=== PATIENT | female | born 1940 | race African-American/Black ===

== ENCOUNTER 2017-01-17 17:18 | Inpatient (IN) | payer MEDICARE, MEDICAID ==
[~2017-01-17] VITALS: Ht 165.1 cm; Wt 68.0 kg
[~2017-01-17 17:18] MED LIST: ASPI-867 PO; ATOR40TA70 PO; COUMADIN PO; HYDR12.529 PO; LIPITOR; NEUROTIN PO
[2017-01-17] MEDS ORDERED: FERR12.5 PO (17:25)
[2017-01-17] MEDS ORDERED: MIRT15TA6 PO (17:25)
[2017-01-17] MEDS ORDERED: LEVOFLOXACIN 500MG PREMIX 100 ML IV ONE (17:45)
[2017-01-17] MEDS ORDERED: SODIUM CHLORIDE 0.9% 1000ML BAG (SEPSIS BOLUS) IV ONE (17:45)
[2017-01-17] MEDS ORDERED: NOREPINEPHRINE 4 MG in DEXT 5% WATER 246 ML IV ONE ×4 (19:15)
[2017-01-17 20:20] LABS: BASOPHILS % 0.6 % (0.0-2.0); EOSINOPHILS % 0.9 % (0.0-5.0); HEMATOCRIT. 29.7 % (36.0-48.0); LYMPHOCYTES % 14.3 % (20.0-50.0); MEAN CORPUSCULAR HEMOGLOBIN 29.3 pg (28.0-32.0); MEAN CORPUSCULAR VOLUME 86.5 fL (81.0-99.0); MEAN PLATELET VOLUME 8.7 fl (7.4-10.4); MONOCYTES % 7.1 % (2.0-8.0); NEUTROPHILS % 77.1 % (40.0-76.0); PLATELET 243 x1000/uL (130-400); RED BLOOD CELL COUNT 3.43 mill/uL (4.2-5.4); RED CELL DISTRIBUTION WIDTH 17.2 % (11.6-14.6)
[2017-01-17 20:24] LABS: CHLORIDE 106 mEq/L (98-107)
[2017-01-17 20:27] LABS: INR 1.3; PARTIAL THROMBOPLASTIN TIME 29.4 sec (23.4-31.0); PROTHROMBIN TIME 13.2 sec (9.4-11.6)
[2017-01-17 20:29] LABS: CARBON DIOXIDE 20 mEq/L (21-32)
[2017-01-17 20:33] LABS: CLARITY URINE TURBID (CLEAR); COLOR URINE YELLOW (YELLOW); GLUCOSE URINE NEGATIVE (NEGATIVE); KETONES URINE NEGATIVE (NEGATIVE); LEUKOCYTE ESTERASE URINE 3+ (NEGATIVE); NITRITE URINE NEGATIVE (NEGATIVE); OCCULT BLOOD URINE TRACE (NEGATIVE); PH URINE 8.5 (4.5-8.0); PROTEIN URINE 2+ (NEGATIVE); SPECIFIC GRAVITY URINE 1.017 (1.005-1.030)
[2017-01-17 20:35] LABS: TROPONIN I 0.09 ng/mL (0.00-0.04)
[2017-01-17] MEDS ORDERED: ONDANSETRON HCL 4MG/2ML VIAL IV PRN (23:15)
[2017-01-17] MEDS ORDERED: ACETAMINOPHEN 650MG/20.3ML UDC GT PRN (23:15)
[2017-01-17] MEDS ORDERED: CLONIDINE 0.1MG TABLET PO PRN (23:15)
[2017-01-17] MEDS ORDERED: VANCOMYCIN 1 G PREMIX 200 ML IV NR (23:15)
[2017-01-17 23:39] LABS: TOTAL IRON BINDING CAPACITY 129 ug/dL (250-450)
[2017-01-17 23:58] VITALS: BP 54/35
[2017-01-18] VITALS (111 sets, daily range): BP systolic 60–147; BP diastolic 28–119
[2017-01-18] MEDS: IPRATROPIUM/ALBUTEROL 0.5-3(2.5)MG/3ML NEB HHN SCH ×6 (01:01→20:09)
[2017-01-18] MEDS ORDERED: SODIUM CHL 0.45% + KCL 20MEQ/L 1,000 ML IV SCH (01:30)
[2017-01-18] MEDS: CLINDAMYCIN 600 MG in DEXTROSE 5% WATER 50 ML IV SCH ×2 (02:45→08:16)
[2017-01-18] MEDS: NOREPINEPHRINE 4 MG in DEXT 5% WATER 246 ML IV PRN ×2 (03:00→13:42)
[2017-01-18] MEDS ORDERED: MVI, ADULT NO.1 10 ML, FOLIC ACID 1 MG, THIAMINE HCL 100 MG in SODIUM CHLORIDE 0.9% 1,0... IV NR ×4 (03:00)
[2017-01-18] MEDS: HYDROMORPHONE HCL/PF 2MG/ML CPJ IV PRN ×2 (04:19→17:05)
[2017-01-18 05:40] LABS: BASOPHILS % 0.2 % (0.0-2.0); EOSINOPHILS % 0.3 % (0.0-5.0); HEMATOCRIT. 28.4 % (36.0-48.0); HEMOGLOBIN. 9.5 g/dL (12.0-16.0); LYMPHOCYTES % 10.5 % (20.0-50.0); MEAN CORPUSCULAR HEMOGLOBIN 29.3 pg (28.0-32.0); MEAN CORPUSCULAR VOLUME 87.6 fL (81.0-99.0); MONOCYTES % 6.6 % (2.0-8.0); NEUTROPHILS % 82.4 % (40.0-76.0); PLATELET 196 x1000/uL (130-400); RED BLOOD CELL COUNT 3.24 mill/uL (4.2-5.4); RED CELL DISTRIBUTION WIDTH 16.9 % (11.6-14.6)
[2017-01-18] MEDS ORDERED: ENOXAPARIN 40MG/0.4ML SYR SUBCUT SCH (09:00)
[2017-01-18] MEDS: VANCOMYCIN 1 G PREMIX 200 ML IV SCH (09:09)
[2017-01-18] MEDS: ASPIRIN 325MG EC TABLET PO SCH (11:55)
[2017-01-18] MEDS ORDERED: LIDOCAINE HCL 1% 20ML VIAL (Pyxis) INJ ONE (12:41)
[2017-01-18] MEDS ORDERED: NOREPINEPHRINE 8 MG in DEXT 5% WATER 242 ML IV PRN (14:00)
[2017-01-18] MEDS ORDERED: DEXT 5%/0.9% NACL 250 ML IV SCH (14:59)
[2017-01-18] MEDS: MEROPENEM 1,000 MG in SODIUM CHLORIDE 0.9% 100 ML IV SCH ×2 (15:02→21:53)
[2017-01-18] MEDS: FERROUS SULFATE 325MG TABLET PO SCH ×2 (15:02→18:20)
[2017-01-18] MEDS ORDERED: DEXT 5%/0.9% NACL 1,000 ML IV SCH ×2 (16:00→18:15)
[2017-01-18] MEDS ORDERED: CLINDAMYCIN 600 MG in DEXTROSE 5% WATER 50 ML IV SCH (16:00)
[2017-01-18] MEDS ORDERED: PHENYLEPHRINE HCL 10 MG/ML 1ML (IV VIAL) IV ONE (16:02)
[2017-01-18] MEDS: PHENYLEPHRINE 20 MG in DEXT 5% WATER 248 ML IV PRN ×2 (16:33→17:44)
[2017-01-18] MEDS ORDERED: PHENYLEPHRINE 80 MG in DEXT 5% WATER 492 ML IV PRN (18:00)
[2017-01-18] MEDS ORDERED: PHENYLEPHRINE 80 MG in DEXT 5% WATER 492 ML IV ONE (18:15)
[2017-01-18] MEDS ORDERED: ALBUMIN HUMAN 12.5G/250ML (5%) IV SCH (18:15)
[2017-01-18] MEDS ORDERED: NOREPINEPHRINE 16 MG in DEXT 5% WATER 234 ML IV PRN (18:30)
[2017-01-18] MEDS ORDERED: PHENYLEPHRINE 40 MG in DEXT 5% WATER 246 ML IV PRN (19:00)
[2017-01-18 19:36] LABS: BG BASE EXCESS -11.1 mmol/L (-2.0-2.0); BG CARBOXYHEMOGLOBIN 1.1 % (0.5-1.5); BG DEOXYHEMOGLOBIN 1.5 % (0.0-5.0); BG FRACTION INSPIRED OXYGEN 36; BG HCO3 ACT 13.3 mmol/L (22.0-26.0); BG METHEMOGLOBIN 0.1 % (0.0-1.5); BG OXYGEN SATURATION 98.5 % (92.0-98.5); BG OXYHEMOGLOBIN 97.3 % (94.0-97.0); BG PCO2 25.2 mmHg (35.0-45.0); BG PH 7.341 (7.350-7.450); BG PO2 117.6 mmHg (75.0-100.0); BG SAMPLE SITE RIGHT RADIAL; BG TOTAL HEMOGLOBIN 8.5 g/dL (12.0-18.0); BG VENT MODE NASAL CANNULA
[2017-01-18] MEDS ORDERED: DIGOXIN 500MCG/2ML AMP IV NR (20:30)
[2017-01-18] MEDS ORDERED: ALBUMIN HUMAN 12.5G/250ML (5%) IV NR (20:30)
[2017-01-18] MEDS ORDERED: SODIUM BICARBONATE 8.4% 1 MEQ/ML 50ML SYR IV NR (20:30)
[2017-01-18 20:33] LABS: CHLORIDE 105 mEq/L (98-107)
[2017-01-18 20:39] LABS: CARBON DIOXIDE 16 mEq/L (21-32)
[2017-01-18] MEDS ORDERED: ATORVASTATIN CALCIUM 40MG TABLET PO SCH (21:00)
[2017-01-18] MEDS ORDERED: SODIUM BICARBONATE 50 MEQ in SODIUM CHLORIDE 0.9% 1,000 ML IV SCH (21:30)
[2017-01-18] MEDS ORDERED: NOREPINEPHRINE 32 MG in DEXT 5% WATER 468 ML IV PRN (21:45)
[2017-01-18] MEDS ORDERED: PHENYLEPHRINE 40 MG in DEXT 5% WATER 500 ML IV PRN (21:45)
[2017-01-18] MEDS ORDERED: SODIUM BICARBONATE IV SCH (22:00)
[2017-01-18] MEDS ORDERED: DEXT IV SCH (22:00)
[2017-01-18] MEDS ORDERED: NACL IV SCH (22:00)
[2017-01-19] VITALS (55 sets, daily range): BP systolic 25–158; BP diastolic 17–108
[2017-01-19] MEDS: IPRATROPIUM/ALBUTEROL 0.5-3(2.5)MG/3ML NEB HHN SCH ×3 (00:03→12:08)
[2017-01-19] MEDS: VASOPRESSIN 10 UNIT in SODIUM CHLORIDE 0.9% 99.5 ML IV PRN ×4 (00:06→13:54)
[2017-01-19] MEDS: HYDROMORPHONE HCL/PF 2MG/ML CPJ IV PRN (02:30)
[2017-01-19] MEDS: VANCOMYCIN 1 G PREMIX 200 ML IV SCH (03:56)
[2017-01-19] MEDS: PHENYLEPHRINE 40 MG in DEXT 5% WATER 246 ML IV PRN ×2 (03:57→07:40)
[2017-01-19 04:12] LABS: BG BASE EXCESS -28.2 mmol/L (-2.0-2.0); BG CARBOXYHEMOGLOBIN 1.4 % (0.5-1.5); BG DEOXYHEMOGLOBIN 0.3 % (0.0-5.0); BG FRACTION INSPIRED OXYGEN 100; BG HCO3 ACT 2.9 mmol/L (22.0-26.0); BG METHEMOGLOBIN 0.3 % (0.0-1.5); BG OXYGEN SATURATION 99.7 % (92.0-98.5); BG PCO2 16.3 mmHg (35.0-45.0); BG PH 6.868 (7.350-7.450); BG PO2 433.1 mmHg (75.0-100.0); BG SAMPLE SITE RIGHT RADIAL; BG TIDAL VOLUME(mL) 500 mL; BG TOTAL HEMOGLOBIN 6.9 g/dL (12.0-18.0); BG VENT MODE VENT - A/C; BG VENT RATE 12 set
[2017-01-19] MEDS ORDERED: SODIUM BICARBONATE 8.4% 1 MEQ/ML 50ML SYR IV SCH ×3 (04:30→08:15)
[2017-01-19] MEDS ORDERED: SODIUM BICARBONATE 100 MEQ in SODIUM CHLORIDE 0.9% 1,000 ML IV SCH (05:30)
[2017-01-19] MEDS: MEROPENEM 1,000 MG in SODIUM CHLORIDE 0.9% 100 ML IV SCH (05:32)
[2017-01-19 07:21] LABS: CHLORIDE 104 mEq/L (98-107)
[2017-01-19 07:49] LABS: CARBON DIOXIDE 8 mEq/L (21-32)
[2017-01-19 08:12] LABS: BG BASE EXCESS -18.5 mmol/L (-2.0-2.0); BG CARBOXYHEMOGLOBIN 1.2 % (0.5-1.5); BG DEOXYHEMOGLOBIN 24.6 % (0.0-5.0); BG FRACTION INSPIRED OXYGEN 60; BG HCO3 ACT 9.7 mmol/L (22.0-26.0); BG METHEMOGLOBIN 0.3 % (0.0-1.5); BG OXYHEMOGLOBIN 73.9 % (94.0-97.0); BG PCO2 32.1 mmHg (35.0-45.0); BG PH 7.096 (7.350-7.450); BG PO2 54.2 mmHg (75.0-100.0); BG SAMPLE SITE LEFT BRACHIAL; BG TIDAL VOLUME(mL) 500 mL; BG VENT MODE VENT - A/C; BG VENT RATE 28 set
[2017-01-19] MEDS ORDERED: CALCIUM CHLORIDE 1GM/10ML SYR IV SCH (08:15)
[2017-01-19] MEDS ORDERED: PHENYLEPHRINE 80 MG in DEXT 5% WATER 492 ML IV PRN (08:15)
[2017-01-19] MEDS ORDERED: SODIUM BICARBONATE 8.4% 1 MEQ/ML 50ML SYR IV ONE ×2 (08:15→15:21)
[2017-01-19] MEDS ORDERED: INSULIN REGULAR (HUMULIN R) 300UNITS/3ML IV SCH (08:15)
[2017-01-19] MEDS ORDERED: DEXTROSE 50% WATER 50ML SYRINGE IV SCH (08:15)
[2017-01-19] MEDS: FERROUS SULFATE 325MG TABLET PO SCH ×2 (08:20→13:20)
[2017-01-19] MEDS ORDERED: CALCIUM CHLORIDE 1GM/10ML SYR IV ONE (08:22)
[2017-01-19] MEDS ORDERED: SODIUM POLYSTYRENE SULFONATE 15 G/60 ML BOT PO SCH (08:30)
[2017-01-19 08:52] LABS: HEMATOCRIT. 24.8 % (36.0-48.0); MEAN CORPUSCULAR HEMOGLOBIN 29.2 pg (28.0-32.0); MEAN CORPUSCULAR VOLUME 105.9 fL (81.0-99.0); MEAN PLATELET VOLUME 9.8 fl (7.4-10.4); PLATELET 88 x1000/uL (130-400); RED BLOOD CELL COUNT 2.34 mill/uL (4.2-5.4); RED CELL DISTRIBUTION WIDTH 18.6 % (11.6-14.6)
[2017-01-19 08:54] LABS: HEMOGLOBIN. 6.8 g/dL (12.0-16.0)
[2017-01-19] MEDS: ASPIRIN 325MG EC TABLET PO SCH (09:00)
[2017-01-19] MEDS ORDERED: ETOMIDATE 2MG/ML 10ML VIAL IV ONE (09:03)
[2017-01-19] MEDS ORDERED: EPINEPHRINE 0.1MG/ML (1:10,000) 10ML SYR ONE (09:03)
[2017-01-19] MEDS ORDERED: SODIUM BICARBONATE 7.5% 0.9 MEQ/ML 50ML SYR IV ONE (09:03)
[2017-01-19] MEDS ORDERED: DEXTROSE 50% WATER 50ML SYRINGE IV ONE (09:03)
[2017-01-19] MEDS ORDERED: SUCCINYLCHOLINE CHLORIDE 200MG/10ML VIAL IV ONE (09:03)
[2017-01-19] MEDS ORDERED: SODIUM BICARBONATE 150 MEQ in SODIUM CHLORIDE 0.9% 1,000 ML IV SCH (09:21)
[2017-01-19 10:09] LABS: BG BASE EXCESS -17.1 mmol/L (-2.0-2.0); BG CARBOXYHEMOGLOBIN 0.3 % (0.5-1.5); BG DEOXYHEMOGLOBIN 1.4 % (0.0-5.0); BG FRACTION INSPIRED OXYGEN 100; BG HCO3 ACT 8.4 mmol/L (22.0-26.0); BG METHEMOGLOBIN 0.3 % (0.0-1.5); BG OXYGEN SATURATION 98.6 % (92.0-98.5); BG PCO2 19.8 mmHg (35.0-45.0); BG PH 7.244 (7.350-7.450); BG PO2 152.6 mmHg (75.0-100.0); BG SAMPLE SITE LEFT FEMORAL; BG TIDAL VOLUME(mL) 500 mL; BG TOTAL HEMOGLOBIN 9.6 g/dL (12.0-18.0); BG VENT MODE VENT - A/C; BG VENT RATE 28 set
[2017-01-19] MEDS ORDERED: SODIUM BICARBONATE 8.4% 1 MEQ/ML 50ML SYR IV NR (10:15)
[2017-01-19 10:39] LABS: NUCLEATED RED BLOOD CELLS 3 /100 WBC; PLATELET ESTIMATE DECREASED
[2017-01-19] MEDS ORDERED: SODIUM ACETATE 150 MEQ in DEXTROSE 5% WATER 1,000 ML IV SCH (11:00)
[2017-01-19] MEDS ORDERED: CALCIUM CHLORIDE 1GM/10ML SYR IV NR (11:15)
[2017-01-19] MEDS ORDERED: PANTOPRAZOLE SODIUM 40 MG/VIAL IV SCH (11:45)
[2017-01-19 12:21] LABS: CARBON DIOXIDE 13 mEq/L (21-32); CHLORIDE 106 mEq/L (98-107)
[2017-01-19 12:32] LABS: HEMATOCRIT 33.2 % (36.0-48.0); HEMOGLOBIN 10.5 g/dL (12.0-16.0); MEAN CORPUSCULAR HEMOGLOBIN 28.5 pg (28.0-32.0); MEAN CORPUSCULAR VOLUME 90.5 fL (81.0-99.0); PLATELET 52 x1000/uL (130-400); RED BLOOD CELL COUNT 3.67 mill/uL (4.2-5.4); RED CELL DISTRIBUTION WIDTH 16.7 % (11.6-14.6)
[2017-01-19 13:57] LABS: BG BASE EXCESS -14.7 mmol/L (-2.0-2.0); BG CARBOXYHEMOGLOBIN 0.9 % (0.5-1.5); BG DEOXYHEMOGLOBIN 84.7 % (0.0-5.0); BG HCO3 ACT 12.8 mmol/L (22.0-26.0); BG METHEMOGLOBIN 1.3 % (0.0-1.5); BG OXYHEMOGLOBIN 13.1 % (94.0-97.0); BG PCO2 35.8 mmHg (35.0-45.0); BG PO2 < 30.3 mmHg (75.0-100.0); BG SAMPLE SITE RIGHT BRACHIAL; BG TIDAL VOLUME(mL) 500 mL; BG TOTAL HEMOGLOBIN 10.6 g/dL (12.0-18.0); BG VENT MODE VENT - A/C; BG VENT RATE 28 set
[2017-01-19] MEDS ORDERED: EPINEPHRINE 1 MG in SODIUM CHLORIDE 0.9% 249 ML IV PRN (14:15)
[2017-01-19] MEDS ORDERED: MAGNESIUM 2 G PREMIX 50 ML IV SCH (15:00)
== END 2017-01-19 15:38 | disposition expired | DRG 853 ==
LOC: ER 17:38 → EDBEDREQ 17:47 → CVICU 20:10 → EDBEDREQ 20:15 → EDBEDREQSVC 20:16 → CANRESERV 23:20 → ENRESERV 23:20
PROVIDERS: ADMIT Internal Medicine Geriatric Medicine; ATTEND Internal Medicine Geriatric Medicine
PROC: 06JYXZZ Inspection of Lower Vein, External Approach (ICD-10-PCS; 2017-01-17)
PROC: 0JB70ZZ Excision of Back Subcutaneous Tissue and Fascia, Open Approach (ICD-10-PCS; 2017-01-18)
PROC: 02HV33Z Insertion of Infusion Device into Superior Vena Cava, Percutaneous Approach (ICD-10-PCS; 2017-01-18)
PROC: B548ZZA Ultrasonography of Superior Vena Cava, Guidance (ICD-10-PCS; 2017-01-18)
PROC: 5A1935Z Respiratory Ventilation, Less than 24 Consecutive Hours (ICD-10-PCS; principal; 2017-01-19)
PROC: 0BH17EZ Insertion of Endotracheal Airway into Trachea, Via Natural or Artificial Opening (ICD-10-PCS; 2017-01-19)
PROC: 30233N1 Transfusion of Nonautologous Red Blood Cells into Peripheral Vein, Percutaneous Approach (ICD-10-PCS; 2017-01-19)
PROC: 06HM33Z Insertion of Infusion Device into Right Femoral Vein, Percutaneous Approach (ICD-10-PCS; 2017-01-19)
PROC: 5A12012 Performance of Cardiac Output, Single, Manual (ICD-10-PCS; 2017-01-19)
DX: A41.9 Sepsis, unspecified organism (principal); E43 Unspecified severe protein-calorie malnutrition; J96.00 Acute respiratory failure, unspecified whether with hypoxia or hypercapnia; N17.0 Acute kidney failure with tubular necrosis; R65.21 Severe sepsis with septic shock; L89.154 Pressure ulcer of sacral region, stage 4; G92 Toxic encephalopathy; D69.6 Thrombocytopenia, unspecified; I69.354 Hemiplegia and hemiparesis following cerebral infarction affecting left non-dominant side; M86.8X8 Other osteomyelitis, other site; I82.402 Acute embolism and thrombosis of unspecified deep veins of left lower extremity; I11.9 Hypertensive heart disease without heart failure; E87.5 Hyperkalemia; G30.9 Alzheimer's disease, unspecified; F02.80 Dementia in other diseases classified elsewhere, unspecified severity, without behavioral disturbance, psychotic disturbance, mood disturbance, and anxiety; L89.620 Pressure ulcer of left heel, unstageable; I48.0 Paroxysmal atrial fibrillation; Z78.1 Physical restraint status; E86.0 Dehydration; B95.5 Unspecified streptococcus as the cause of diseases classified elsewhere; D50.9 Iron deficiency anemia, unspecified; E78.00 Pure hypercholesterolemia, unspecified; E78.5 Hyperlipidemia, unspecified; I25.10 Atherosclerotic heart disease of native coronary artery without angina pectoris; I25.2 Old myocardial infarction; Z74.01 Bed confinement status; Z88.0 Allergy status to penicillin; Z88.2 Allergy status to sulfonamides; Z87.891 Personal history of nicotine dependence; M81.0 Age-related osteoporosis without current pathological fracture; N83.209 Unspecified ovarian cyst, unspecified side; L89.610 Pressure ulcer of right heel, unstageable; M19.90 Unspecified osteoarthritis, unspecified site; Z88.8 Allergy status to other drugs, medicaments and biological substances; Z88.1 Allergy status to other antibiotic agents; F32.9 Major depressive disorder, single episode, unspecified; Z79.899 Other long term (current) drug therapy; N30.90 Cystitis, unspecified without hematuria; R73.9 Hyperglycemia, unspecified; Z68.25 Body mass index [BMI] 25.0-25.9, adult
CPT/HCPCS: 31500; 36415; 36556; 36569; 36600; 36680; 51702; 71010; 72131; 76937; 78580; 80048; 80053; 80202; 81001; 82375; 82533; 82805; 82962; 83036; 83540; 83550; 83605; 83690; 83735; 83880; 84100; 84484; 85025; 85027; 85610; 85651; 85730; 86140; 86850; 86900; 86920; 87040; 87077; 87086; 87186; 93005; 93306; 93970; 94002; 94003; 94640; 96365; 96375; 99291; C1725; C1752; C9113; J0171; J0330; J1160; J1170; J1650; J1956; J2185; J2370; J3370; J3411; J3475; J3480; J3490; J7030; J7040; J7042; J7050; J7060; J7070; J7620; P9016; P9041; A4315